=== PATIENT | male | born 1985 | race Caucasian/White ===

== ENCOUNTER 2017-07-17 09:28 | Emergency (ER) | payer SELFPAY ==
[2017-07-17] MEDS ORDERED: KETOROLAC TROMETHAMINE 60 MG/2 ML VIAL IM ONE (09:48)
[2017-07-17 09:52] VITALS: BP 114/83
--- NOTE | 2017-07-17 09:59 | ED Physician Documentation ---
General Adult - HISTORIAN Historian: patient - HPI Stated Complaint: left jaw pain Chief Complaint: General Adult Onset: days ago (about 10 days ago) Timing: still present Severity: mild Further Comments: yes (Pt is a 32 yo male with pain in his L jaw that has been going on for more than a week. Pt says it hurts to bite down when eating. Pt notes that he had enlarged lymph nodes in his neck and behind his ear, though these have improved.) - ROS CONST: no problems EYES/ENT: other (L jaw pain) CVS/RESP: none GI/: none MS/SKIN/LYMPH: none - PAST HX Past History: none Allergies/Adverse Reactions: Allergies Allergy/AdvReac Type Severity Reaction Status Date / Time No Known Allergies Allergy Verified 09/20/16 21:50 Home Medications: Ambulatory Orders Medication Instructions Recorded Cephalexin [Keflex] 500 mg PO Q8H #30 capsule 07/17/17 - SOCIAL HX Smoking History: cigarettes - FAMILY HX Family History: No - VITAL SIGNS Vital Signs: Vital Signs Temp Pulse Resp BP Pulse Ox 98.2 F 96 H 20 114/83 98 07/17/17 09:28 07/17/17 09:28 07/17/17 09:28 07/17/17 09:28 07/17/17 09:28 - REVIEWED ASSESSMENTS Nursing Assessment Reviewed: Yes Vitals Reviewed: Yes Progress - Progress Progress: Toradol 60 mg IM in ER. d/c instructions: Rx Keflex 500 mg. Take one every 8 hrs for 10 days. (Pt reports post- auricular lyphadenopathy and cervical lymphadenopathy.) Ibuprofen 200 mg. Take two or three every 8 hrs with food. (May take Aleve instead if you wish. Use as directed.) ED Results Lab/Radiology - Orders Orders: ED Orders Category Date Time Status Ketorolac Tromethamine [Toradol] Med 07/17/17 09:48 Discontinued 60 mg IM NOW ONE General Adult Physical Exam - PHYSICAL EXAM GENERAL APPEARANCE: no distress EENT: pharynx normal, TM's nml, other (Pt able to fully open his jaw; TMJ is intact b/l.) NECK: normal inspection, supple RESPIRATORY: no resp distress, chest non-tender, breath sounds normal CVS: reg rate & rhythm, heart sounds normal BACK: normal inspection SKIN: warm/dry, normal color EXTREMITIES: non-tender, normal range of motion, no evidence of injury, no edema NEURO: oriented X3, motor nml, sensation nml Discharge Clincal Impression: Left jaw pain, recent lyphadenopathy Prescriptions: Cephalexin [Keflex] 500 mg PO Q8H #30 capsule Referrals: Mg Reed MD [Primary Care Provider] - Condition: Good Disposition: 01 HOME, SELF-CARE Decision to Admit: NO Decision Time: 09:59
== END 2017-07-17 10:12 | disposition home or self-care (01) ==
LOC: ED 09:28
DX: R68.84 Jaw pain (principal)
CPT/HCPCS: 96372; 99283; J1885

== ENCOUNTER 2018-06-27 12:08 | Emergency (ER) | payer SELFPAY ==
--- NOTE | 2018-06-27 12:25 | ED Physician Documentation ---
General Adult - HISTORIAN Historian: patient - HPI Stated Complaint: BERRY Chief Complaint: General Adult Onset: days ago Timing: still present Severity: moderate Further Comments: yes (Pt is a 33 yo male with a headache over the past week. Pt has now begun to develop nasal congestion. Pain is central extending from forehead over the top of his head. No fever, n/v.) - ROS CONST: no problems EYES/ENT: nasal drainage, nasal congestion CVS/RESP: none GI/: none MS/SKIN/LYMPH: none NEURO/PSYCH: headache - PAST HX Past History: none Other History: none Allergies/Adverse Reactions: Allergies Allergy/AdvReac Type Severity Reaction Status Date / Time No Known Allergies Allergy Verified 06/27/18 12:18 Home Medications: Ambulatory Orders Medication Instructions Recorded NK 06/27/18 - SOCIAL HX Smoking History: cigarettes - FAMILY HX Family History: No - VITAL SIGNS Vital Signs: Vital Signs Temp Pulse Resp BP Pulse Ox 97.6 F 68 20 114/83 98 06/27/18 12:15 06/27/18 12:15 06/27/18 12:15 06/27/18 12:15 06/27/18 12:15 - REVIEWED ASSESSMENTS Nursing Assessment Reviewed: Yes Vitals Reviewed: Yes Progress - Progress Progress: Toradol 60 mg IM in ER, Headache improved. D/c instructions: Rx Z-tatum. Use as directed for upper respiratory infection. Nasal washes, 1 or 2 times daily. Ibuprofen 200 mg. Take two or three every 8 hours with food as needed. General Adult Physical Exam - PHYSICAL EXAM GENERAL APPEARANCE: mild distress EENT: eye inspection normal, ENT inspection normal, pharynx normal NECK: normal inspection, supple RESPIRATORY: no resp distress, chest non-tender, breath sounds normal CVS: reg rate & rhythm, heart sounds normal BACK: normal inspection, no CVA tenderness SKIN: warm/dry, normal color EXTREMITIES: non-tender, normal range of motion, no evidence of injury NEURO: oriented X3, motor nml, sensation nml Discharge Clincal Impression: headache, nasal congestion Referrals: Mg Reed MD [Primary Care Provider] - Condition: Good Disposition: 01 HOME, SELF-CARE Decision to Admit: NO Decision Time: 12:59
[2018-06-27] MEDS ORDERED: KETOROLAC TROMETHAMINE 60 MG/2 ML VIAL IM ONE (12:26)
== END 2018-06-27 13:10 | disposition home or self-care (01) ==
LOC: ED 12:08
DX: R09.81 Nasal congestion (principal); R51 Headache
CPT/HCPCS: 96372; 99283; J1885